=== PATIENT | female | born 1975 ===

== ENCOUNTER 2021-04-19 07:02 | Inpatient (IN) | payer OTHER ==
[2021-04-19] MEDS ORDERED: Water For Irrigation,Sterile 1,000 ML Container IRR PRN (07:22)
[2021-04-19] MEDS ORDERED: Misoprostol 200 MCG Tab PO PRN (07:22)
[2021-04-19] MEDS ORDERED: Carboprost Tromethamine 250 MCG/1 ML Amp IM PRN (07:22)
[2021-04-19] MEDS ORDERED: Nalbuphine 10 MG/1 ML Vial IVPUSH PRN (07:22)
[2021-04-19] MEDS ORDERED: Sodium Chloride 0.9% 10 ML SDV IV PRN (07:22)
[2021-04-19] MEDS ORDERED: Sodium Chloride 0.9% 2.5 ML Syringe FLUSH PRN (07:22)
[2021-04-19] MEDS ORDERED: Tranexamic Acid 1,000 MG in Sodium Chloride 0.9% 100 ML IV PRN (07:22)
[2021-04-19] MEDS ORDERED: Lidocaine 1% 50 ML MDV INJECT PRN (07:22)
[2021-04-19] MEDS ORDERED: Sodium Chloride 0.9% 10 ML Syringe FLUSH PRN (07:22)
[2021-04-19] MEDS ORDERED: Butorphanol 1 MG/ML SDV IVPUSH PRN (07:22)
[2021-04-19] MEDS ORDERED: Methylergonovine 0.2 MG/1 ML Amp IM PRN (07:22)
[2021-04-19] MEDS ORDERED: Oxytocin/0.9 % Sodium Chloride 30 UNIT/500 ML BAG IV SCH (07:30)
[2021-04-19] MEDS: Lactated Ringers 1,000 ML IV SCH ×3 (07:48→10:45)
[2021-04-19] MEDS ORDERED: NIFEdipine 10 MG Cap ONE (08:43)
[2021-04-19] MEDS ORDERED: NIFEdipine 10 MG Cap PO ONE (08:45)
--- NOTE | 2021-04-19 10:39 | PCM.LDHP ---
L&D History of Present Illness - General Date of Service: 04/19/21 Admit Problem/Dx: Patient Status Order with Admit Dx/Problem 04/19/21 06:45 Patient Status [ADT] Routine Admission Diagnosis/Problem Admission Diagnosis/Problem Source of Information: Patient History Limitations: Reports: No Limitations - History of Present Illness Improves with: Reports: None Worsens with: Reports: None Associated Symptoms: Reports: N - Related Data Allergies/Adverse Reactions: Allergies Allergy/AdvReac Type Severity Reaction Status Date / Time No Known Allergies Allergy Verified 04/19/21 07:22 Home Medications: Home Meds Cetirizine [ZyrTEC] 10 mg PO DAILY 03/13/18 [History] FLUoxetine HCl [Fluoxetine HCl] 10 mg PO DAILY 03/13/18 [History] NIFEdipine [Nifedipine ER] 60 mg PO DAILY 03/13/18 [History] Vit/Iron Fumarate/FA [ Tablet] 1 tab PO DAILY 03/13/18 [History] Past Medical History HEENT History: Reports: Impaired Vision, Other (See Below) Other HEENT History: 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 diff [employer] History: Reports: , Spontaneous Psychiatric History: Reports: Anxiety, Bipolar, Depression, Other (See Below) Other Psychiatric History: social anxiety Dermatologic History: Reports: Eczema - Infectious Disease History Infectious Disease History: Reports: C-Difficile, Chicken Pox - Past Surgical History HEENT Surgical History: Reports: None Cardiovascular Surgical History: Reports: None Respiratory Surgical History: Reports: None GI Surgical History: Reports: None Dermatological Surgical History: Reports: None Social & Family History - Family History Family Medical History: No Pertinent Family History - Tobacco Use Tobacco Use Status *Q: Current Every Day Tobacco User Years of Tobacco use: 25 Packs/Tins Daily: 0.5 Used Tobacco, but Quit: No Second Hand Smoke Exposure: No - Recreational Drug Use Recreational Drug Use: Yes Drug Use in Last 12 Months: No Recreational Drug Type: Reports: Methamphetamine Recreational Drug Use Frequency: Not Used In Over 6 Months Recreational Drug Last Use: 2007 H&P Review of Systems - Review of Systems: Review Of Systems: See Below General: Reports: No Symptoms HEENT: Reports: No Symptoms Pulmonary: Reports: No Symptoms Cardiovascular: Reports: No Symptoms Gastrointestinal: Reports: No Symptoms Genitourinary: Reports: No Symptoms Musculoskeletal: Reports: No Symptoms Skin: Reports: No Symptoms Psychiatric: Reports: No Symptoms Neurological: Reports: No Symptoms Hematologic/Lymphatic: Reports: No Symptoms Immunologic: Reports: No Symptoms L&D Exam - Exam Exam: See Below - Vital Signs Weight: 99.337 kg - OB Specific Contraction Intensity: Moderate Movement: Active Heart Tones: Present Presentation: Vertex - Barraza Score Barraza Score Cervix Position: Anterior Barraza Score Consistency: Soft Barraza Score Effacement: >80% Barraza Score Dilation: > 5 cm Barraza Score 's Station: -2 Barraza Score Total: 11 - Exam General: Alert, Oriented HEENT: PERRLA, Conjunctiva Clear, EACs Clear, EOMI, Hearing Intact, Mucosa Moist & Point, Nares Patent, Normal Nasal Septum, Posterior Pharynx Clear, TMs Clear Neck: Supple, Trachea Midline Lungs: Clear to Auscultation, Normal Respiratory Effort Cardiovascular: Regular Rate, Regular Rhythm GI/Abdominal Exam: Normal Bowel Sounds, Soft, Non-Tender, No Organomegaly, No Distention, No Abnormal Bruit, No Mass, Pelvis Stable Rectal Exam: Normal Exam, Normal Rectal Tone Genitourinary: Normal external exam, Normal bimanual exam, Normal speculum exam Back Exam: Normal Inspection, Full Range of Motion Extremities: Normal Inspection, Normal Range of Motion, Non-Tender, No Pedal Edema, Normal Capillary Refill Skin: Warm, Dry, Intact Neurological: Cranial Nerves Intact, Reflexes Equal Bilateral Psychiatric: Alert, Normal Affect, Normal Mood - Patient Data Lab Results Last 24 hrs: Laboratory Results - last 24 hr 04/19/21 04/19/21 04/19/21 Range/Units 07:27 07:27 08:15 WBC 9.74 (4.0-11.0) K/uL RBC 4.46 (4.30-5.90) M/uL Hgb 12.9 (12.0-16.0) g/dL Hct 38.3 (36.0-46.0) % MCV 85.9 (80.0-98.0) fL MCH 28.9 (27.0-32.0) pg MCHC 33.7 (31.0-37.0) g/dL RDW Std Deviation 44.5 (28.0-62.0) fl RDW Coeff of Manuel 14 (11.0-15.0) % Plt Count 421 H (150-400) K/uL MPV 10.20 (7.40-12.00) fL Nucleated RBC % 0.0 /100WBC Nucleated RBCs # 0 K/uL SARS-CoV-2 RNA (MARIA) NEGATIVE (NEGATIVE) Blood Type AB POSITIVE Antibody Screen NEGATIVE Result Diagrams: 04/19/21 07:27 Problem List Initiated/Reviewed/Updated: Yes Orders Last 24hrs: Active Orders 24 hr Category Date Time Status Patient Status [ADT] Routine ADT 04/19/21 06:45 Active Heart Tones [RC] CONTINUOUS Care 04/19/21 07:22 Active Non Stress Test [RC] PER UNIT ROUTINE Care 04/19/21 07:22 Active May Shower [RC] ASDIRECTED Care 04/19/21 07:22 Active Notify Provider [RC] PRN Care 04/19/21 07:22 Active Up ad Shaila [RC] ASDIRECTED Care 04/19/21 07:22 Active Vaccine to be Administered/Admin Charge [RC] ASDIRECTED Care 04/19/21 09:27 Active Vaginal Exam [RC] PRN Care 04/19/21 07:22 Active Vital Signs [RC] PER UNIT ROUTINE Care 04/19/21 07:22 Active OB 2 Or 3 Tri Sgl 1st Gest [US] Stat Exams 04/19/21 10:21 Ordered RPR (SYPHILIS SERO) W/ RFLX [REF] Routine Lab 04/19/21 07:27 Received Butorphanol [Stadol] Med 04/19/21 07:22 Active 1 mg IVPUSH Q1H PRN Carboprost Tromethamine [Hemabate DS] Med 04/19/21 07:22 Active 250 mcg IM ASDIRECTED PRN FLU Vacc [id number](6MOS UP)/PF [Fluzone Quad [id number] Med 04/24/21 09:30 Once Syringe] 60 mcg IM .ONCE ONE Lactated Ringers [Ringers, Lactated] 1,000 ml Med 04/19/21 07:30 Active IV ASDIRECTED Lidocaine 1% [Xylocaine 1%] Med 04/19/21 07:22 Active 50 ml INJECT ONETIME PRN Methylergonovine [Methergine] Med 04/19/21 07:22 Active 0.2 mg IM ASDIRECTED PRN Nalbuphine [Nubain] Med 04/19/21 07:22 Active 10 mg IVPUSH Q1H PRN Oxytocin/0.9 % Sodium Chloride [Oxytocin 30 Unit in NS Med 04/19/21 07:30 Active 0.9% 500 ML Premix] 30 unit in 500 ml IV TITRATE Pharmacy to Dose - InFluenza V [Pharmacy to Dose - Med 04/20/21 09:27 Once InFluenza Vaccine] 1 each IM ONETIME ONE Sodium Chloride 0.9% [Normal Saline] Med 04/19/21 07:22 Active 10 ml IV ASDIRECTED PRN Sodium Chloride 0.9% [Saline Flush] Med 04/19/21 07:22 Active 10 ml FLUSH ASDIRECTED PRN Sodium Chloride 0.9% [Saline Flush] Med 04/19/21 07:22 Active 2.5 ml FLUSH ASDIRECTED PRN Tranexamic Acid [Cyklokapron] 1,000 mg Med 04/19/21 07:22 Active Sodium Chloride 0.9% [Normal Saline] 100 ml IV ONETIME Water For Irrigation,Sterile [Sterile Water for Med 04/19/21 07:22 Active Irrigation] 1,000 ml IRR ASDIRECTED PRN miSOPROStoL [Cytotec] Med 04/19/21 07:22 Active 200 mcg PO ONETIME PRN Scalp Electrode [WOMSER] Per Unit Routine Oth 04/19/21 07:22 Ordered Peripheral IV Insertion Adult [OM.PC] Routine Oth 04/19/21 07:22 Ordered Resuscitation Status Routine Resus Stat 04/19/21 07:22 Ordered Medication Orders Butorphanol Tartrate (Butorphanol 1 Mg/Ml Sdv) 1 mg IVPUSH Q1H PRN PRN Reason: Pain (severe 7-10) Carboprost Tromethamine (Carboprost Tromethamine 250 Mcg/1 Ml Amp) 250 mcg IM ASDIRECTED PRN PRN Reason: Post Hemorrhage Oxytocin/Sodium Chloride (Oxytocin 30 Unit In Ns 0.9% 500 Ml Premix) 30 unit in 500 mls @ 500 mls/hr IV TITRATE [facility] Tranexamic Acid 1,000 mg/ (Sodium Chloride) 110 mls @ 660 mls/hr IV ONETIME PRN PRN Reason: Bleeding Lactated Ringer's (Ringers, Lactated) 1,000 mls @ 150 mls/hr IV ASDIRECTED IRENA Last Admin: 04/19/21 08:37 Dose: 150 mls/hr Documented by: Infusion: 04/19/21 08:37 Dose: 999 mls/hr Documented by: Admin: 04/19/21 07:48 Dose: 999 mls/hr Documented by: MACY Influenza Virus Vaccine (Pharmacy To Dose - Influenza Vaccine) 1 each IM ONETIME ONE Stop: 04/20/21 09:28 Influenza Virus Vaccine (Flu Vacc [id number](6mos Up)/Pf 60 Mcg/0.5 Ml Syringe) 60 mcg IM .ONCE ONE Stop: 04/24/21 09:31 Lidocaine HCl (Lidocaine 1% 50 Ml Mdv) 50 ml INJECT ONETIME PRN PRN Reason: Laceration repair Methylergonovine Maleate (Methylergonovine 0.2 Mg/1 Ml Amp) 0.2 mg IM ASDIRECTED PRN PRN Reason: Post Hemorrhage Misoprostol (Misoprostol 200 Mcg Tab) 200 mcg PO ONETIME PRN PRN Reason: Post Hemorrhage Nalbuphine HCl (Nalbuphine 10 Mg/1 Ml Vial) 10 mg IVPUSH Q1H PRN PRN Reason: Pain (severe 7-10) Sodium Chloride (Sodium Chloride 0.9% 10 Ml Syringe) 10 ml FLUSH ASDIRECTED PRN PRN Reason: Keep Vein Open Sodium Chloride (Sodium Chloride 0.9% 2.5 Ml Syringe) 2.5 ml FLUSH ASDIRECTED PRN PRN Reason: Keep Vein Open Sodium Chloride (Sodium Chloride 0.9% 10 Ml Sdv) 10 ml IV ASDIRECTED PRN PRN Reason: IV Use Sterile Water (Water For Irrigation,Sterile 1,000 Ml Container) 1,000 ml IRR ASDIRECTED PRN PRN Reason: delivery
--- NOTE | 2021-04-19 11:12 | US ---
INDICATION: Patient in labor. Question position. TECHNIQUE: Limited transabdominal two-dimensional grayscale ultrasound examination. COMPARISON: 12/29/2020. FINDINGS: There is a living fetus in vertex lie with gestational age of 37 weeks 3 days by LMP and EDC of 05/07/2021. The heart rate is measured at 145 beats per minute and the rhythm appears regular. IMPRESSION: Living fetus in vertex lie with gestational age of 37 weeks 3 days by LMP and EDC of 05/07/2021. Dictated by Ambrosio Cornelius MD @ 04/19/2021 11:10:42 AM (Electronically Signed)
[2021-04-19] MEDS ORDERED: Bisacodyl 10 MG Supp RECTAL PRN (13:34)
[2021-04-19] MEDS ORDERED: Ibuprofen 400 MG Tab PO PRN (13:34)
[2021-04-19] MEDS ORDERED: Docusate Sodium 100 MG Cap PO PRN (13:34)
[2021-04-19] MEDS ORDERED: Witch Hazel Medicated Pads 40/Jar TOP PRN (13:34)
[2021-04-19] MEDS ORDERED: Lanolin 100% Cream 7 GM Tube TOP PRN (13:34)
[2021-04-19] MEDS ORDERED: Acetaminophen 500 MG Tab PO PRN (13:34)
[2021-04-19] MEDS ORDERED: Benzocaine/Menthol 20%-0.5% Spray 78 GM Cannister TOP PRN (13:34)
[2021-04-19] MEDS: Ibuprofen 800 MG Tab PO PRN ×2 (14:16→19:47)
[2021-04-19] MEDS: oxyCODONE 5 MG Tab PO PRN ×2 (14:17→21:38)
--- NOTE | 2021-04-19 15:59 | OR ---
SURGEON: Murali Zavala MD DATE OF PROCEDURE: 04/19/2021 Ms. Lofton is a 45-year-old patient. She is para 5-0-0-5. She is followed in our clinic jointly by myself and nurse bell valet. Her GBS status is negative. She is 38 weeks. She is admitted in active labor. At the time of admission, she was 4 to 5 cm with bulging bag of water. There was questionable about the presentation, but her presentation was confirmed by ultrasound to be vertex. She was leaking amniotic fluid and then we proceeded to have spontaneous rupture of the membranes. The patient progressed to complete, complete, and she was able to push the fetus to have a normal spontaneous vaginal delivery of a female fetus. The scores and weight are not available at the time of the delivery. There was no need for episiotomy. There was no perineal, labial, or vaginal laceration. The placenta delivered spontaneous, complete, and intact. heart rate was category 1 through the entire process of labor. There was no complication in the labor and delivery of this patient. DEEP / SARAY /[id number]
[2021-04-20] MEDS: Acetaminophen 500 MG Tab PO PRN ×3 (04:38→13:55)
[2021-04-20] MEDS: oxyCODONE 5 MG Tab PO PRN (06:50)
[2021-04-20] MEDS ORDERED: NIFEdipine 30 MG Tab.ER PO SCH (09:00)
[2021-04-20] MEDS: Ibuprofen 800 MG Tab PO PRN (13:55)
--- NOTE | 2021-04-20 16:38 | PCM.PNPP ---
- General Info Date of Service: 04/20/21 Admission Dx/Problem (Free Text): Patient Status Order with Admit Dx/Problem 04/19/21 06:45 Patient Status [ADT] Routine Admission Diagnosis/Problem Admission Diagnosis/Problem Subjective Update: 45yo G10 now P3365 s/p uncomplicated @ 37w3d GA. Doing well. No c/o Functional Status: Reports: Pain Controlled - Review of Systems General: Reports: No Symptoms HEENT: Reports: No Symptoms Pulmonary: Reports: No Symptoms Gastrointestinal: Reports: No Symptoms Genitourinary: Reports: No Symptoms Musculoskeletal: Reports: No Symptoms Skin: Reports: No Symptoms Neurological: Reports: No Symptoms Psychiatric: Reports: No Symptoms - General Info Date of Service: 04/20/21 - Patient Data Vital Signs - Most Recent: Last Vital Signs Temp 97.8 F 04/20/21 08:00 Pulse 77 04/20/21 08:00 Resp 18 04/20/21 08:00 BP 152/97 H 04/20/21 08:31 Pulse Ox 96 04/20/21 08:00 Weight - Most Recent: 99.337 kg Lab Results - Last 24 Hours: Laboratory Results - last 24 hr 04/19/21 04/20/21 Range/Units 07:27 05:08 Hgb 12.0 (12.0-16.0) g/dL Hct 35.9 L (36.0-46.0) % RPR Non-Reac (Non-Reac) Med Orders - Current: Current Medications Discontinued Medications Acetaminophen (Acetaminophen 500 Mg Tab) 500 mg PO Q4H PRN PRN Reason: Pain (mild 1-3) Acetaminophen (Acetaminophen 500 Mg Tab) 1,000 mg PO Q4H PRN PRN Reason: Pain (mild 1-3) Last Admin: 04/20/21 13:55 Dose: 1,000 mg Documented by: Benzocaine/Menthol (Benzocaine/Menthol 20%-0.5% [place] 78 Gm Cannister) 78 gm TOP ASDIRECTED PRN PRN Reason: Perineal Comfort Measure Last Admin: 04/19/21 14:44 Dose: 1 canister Documented by: Bisacodyl (Bisacodyl 10 Mg Supp) 10 mg RECTAL ONETIME PRN PRN Reason: Constipation Butorphanol Tartrate (Butorphanol 1 Mg/Ml Sdv) 1 mg IVPUSH Q1H PRN PRN Reason: Pain (severe 7-10) Carboprost Tromethamine (Carboprost Tromethamine 250 Mcg/1 Ml Amp) 250 mcg IM ASDIRECTED PRN PRN Reason: Post Hemorrhage Docusate Sodium (Docusate Sodium 100 Mg Cap) 100 mg PO Q12H PRN PRN Reason: Constipation Last Admin: 04/19/21 19:46 Dose: 100 mg Documented by: Emollient Ointment (Lanolin 100% Cream 7 Gm Tube) 0 gm TOP ASDIRECTED PRN PRN Reason: Sore Nipples Fluoxetine HCl (Fluoxetine 10 Mg Tab) 50 mg PO DAILY [facility] Last Admin: 04/20/21 08:30 Dose: 50 mg Documented by: Oxytocin/Sodium Chloride (Oxytocin 30 Unit In Ns 0.9% 500 Ml Premix) 30 unit in 500 mls @ 500 mls/hr IV TITRATE [facility] Last Infusion: 04/19/21 13:48 Dose: 250 mls/hr Documented by: Tranexamic Acid 1,000 mg/ (Sodium Chloride) 110 mls @ 660 mls/hr IV ONETIME PRN PRN Reason: Bleeding Lactated Ringer's (Ringers, Lactated) 1,000 mls @ 150 mls/hr IV ASDIRECTED IRENA Last Admin: 04/19/21 10:45 Dose: 150 mls/hr Documented by: Ibuprofen (Ibuprofen 400 Mg Tab) 400 mg PO Q4H PRN PRN Reason: Pain (mild 1-3) Ibuprofen (Ibuprofen 800 Mg Tab) 800 mg PO Q6H PRN PRN Reason: Cramping Last Admin: 04/20/21 13:55 Dose: 800 mg Documented by: Influenza Virus Vaccine (Pharmacy To Dose - Influenza Vaccine) 1 each IM ONETIME ONE Stop: 04/20/21 09:28 Last Admin: 04/20/21 15:36 Dose: Not Given Documented by: Influenza Virus Vaccine (Flu Vacc [id number](6mos Up)/Pf 60 Mcg/0.5 Ml Syringe) 60 mcg IM .ONCE ONE Stop: 04/24/21 09:31 Lidocaine HCl (Lidocaine 1% 50 Ml Mdv) 50 ml INJECT ONETIME PRN PRN Reason: Laceration repair Methylergonovine Maleate (Methylergonovine 0.2 Mg/1 Ml Amp) 0.2 mg IM ASDIRECTED PRN PRN Reason: Post Hemorrhage Misoprostol (Misoprostol 200 Mcg Tab) 200 mcg PO ONETIME PRN PRN Reason: Post Hemorrhage Nalbuphine HCl (Nalbuphine 10 Mg/1 Ml Vial) 10 mg IVPUSH Q1H PRN PRN Reason: Pain (severe 7-10) Nifedipine (Nifedipine 10 Mg Cap) 20 mg PO ONETIME ONE Stop: 04/19/21 08:46 Last Admin: 04/19/21 13:11 Dose: 10 mg Documented by: Nifedipine (Nifedipine 10 Mg Cap) Confirm Administered Dose 20 mg .ROUTE .STK- MED ONE Stop: 04/19/21 08:44 Last Admin: 04/19/21 12:57 Dose: 10 mg Documented by: Nifedipine (Nifedipine 30 Mg Tab.Er) 90 mg PO DAILY [facility] Last Admin: 04/20/21 08:31 Dose: 90 mg Documented by: Oxycodone HCl (Oxycodone 5 Mg Tab) 5 mg PO Q2H PRN PRN Reason: Pain (severe 7-10) Last Admin: 04/20/21 06:50 Dose: 5 mg Documented by: Sodium Chloride (Sodium Chloride 0.9% 10 Ml Syringe) 10 ml FLUSH ASDIRECTED PRN PRN Reason: Keep Vein Open Sodium Chloride (Sodium Chloride 0.9% 2.5 Ml Syringe) 2.5 ml FLUSH ASDIRECTED PRN PRN Reason: Keep Vein Open Sodium Chloride (Sodium Chloride 0.9% 10 Ml Sdv) 10 ml IV ASDIRECTED PRN PRN Reason: IV Use Sterile Water (Water For Irrigation,Sterile 1,000 Ml Container) 1,000 ml IRR ASDIRECTED PRN PRN Reason: delivery Witch Candice (Witch Candice Medicated Pads 40/Jar) 1 pad TOP ASDIRECTED PRN PRN Reason: comfort care Last Admin: 04/19/21 14:44 Dose: 1 pad Documented by: - Interaction Support Person: - Recovery Exam Fundal Tone: Firm Fundal Level: 1 Fingerbreadths Below Umbilicus Fundal Placement: Midline Lochia Amount: Scant Lochia Color: Rubra/Red Perineum Description: Intact, Minimal Bruising/Swelling Episiotomy/Laceration: None Bladder Status: Voiding Urinary Elimination: Voided - Exam General: Alert, Oriented Lungs: Normal Respiratory Effort GI/Abdominal Exam: Soft, Non-Tender Extremities: Normal Inspection Psy/Mental Status: Alert, Normal Affect, Normal Mood - Problem List & Annotations (1) Term delivered SNOMED Code(s): 77967380, [id number] Code(s): O80 - ENCOUNTER FOR FULL-TERM UNCOMPLICATED DELIVERY Status: Acute - Problem List Review Problem List Initiated/Reviewed/Updated: Yes - Plan Plan:: 45yo G10 now P3365 s/p uncomplicated @ 37w3d GA. P: Continue routine care
--- NOTE | 2021-04-20 16:44 | PCM.DCSUM1 ---
Discharge Summary - Hospital Course Free Text/Narrative:: 45yo G10 now P3365 s/p uncomplicated @ 37w3d GA. course unremarkable Diagnosis: Stroke: No - Discharge Data Discharge Date: 04/20/21 Discharge Disposition: Home, Self-Care 01 Condition: Good - Referral to Home Health Primary Care Physician: PCP None - Discharge Diagnosis/Problem(s) (1) Term delivered SNOMED Code(s): 52723420, [id number] ICD Code: O80 - ENCOUNTER FOR FULL-TERM UNCOMPLICATED DELIVERY Status: Acute Priority: High - Patient Instructions Diet: Usual Diet as Tolerated - Discharge Plan *PRESCRIPTION DRUG MONITORING PROGRAM REVIEWED*: Not Applicable *COPY OF PRESCRIPTION DRUG MONITORING REPORT IN PATIENT MIKE: Not Applicable Home Medications: Home Meds Cetirizine [ZyrTEC] 10 mg PO DAILY 03/13/18 [History] FLUoxetine HCl [Fluoxetine HCl] 10 mg PO DAILY 03/13/18 [History] NIFEdipine [Nifedipine ER] 60 mg PO DAILY 03/13/18 [History] Vit/Iron Fumarate/FA [ Tablet] 1 tab PO DAILY 03/13/18 [History] Loratadine/Pseudoephedrine [Claritin-D 24 Hour Tablet] 1 each PO DAILY 04/19/21 [History] Montelukast Sodium [Singulair] 10 mg PO BEDTIME 04/19/21 [History] Patient Handouts: Steps to Quit Smoking, Liel-wo-Ebsn, Managing the Challenge of Quitting Smoking, Baby Blues, Preventing Smoking Relapse After , Care After Vaginal Delivery Referrals: Murali Zavala MD [Physician] - 05/30/21 1:30 pm (6-week check.) - Discharge Summary/Plan Comment DC Time >30 min.: Yes Total # of Minutes for Discharge Time: >30mns - General Info Date of Service: 04/20/21 Subjective Update: 45yo G10 now P3365 s/p uncomplicated @ 37w3d GA. care unremarkable Functional Status: Reports: Pain Controlled - Review of Systems General: Reports: No Symptoms HEENT: Reports: No Symptoms Pulmonary: Reports: No Symptoms Cardiovascular: Reports: No Symptoms Gastrointestinal: Reports: No Symptoms Genitourinary: Reports: No Symptoms Musculoskeletal: Reports: No Symptoms Skin: Reports: No Symptoms Neurological: Reports: No Symptoms Psychiatric: Reports: No Symptoms - Patient Data Vitals - Most Recent: Last Vital Signs Temp 97.8 F 04/20/21 08:00 Pulse 77 04/20/21 08:00 Resp 18 04/20/21 08:00 BP 152/97 H 04/20/21 08:31 Pulse Ox 96 04/20/21 08:00 Weight - Most Recent: 99.337 kg Lab Results - Last 24 hrs: Laboratory Results - last 24 hr 04/19/21 04/20/21 Range/Units 07:27 05:08 Hgb 12.0 (12.0-16.0) g/dL Hct 35.9 L (36.0-46.0) % RPR Non-Reac (Non-Reac) Med Orders - Current: Current Medications Discontinued Medications Acetaminophen (Acetaminophen 500 Mg Tab) 500 mg PO Q4H PRN PRN Reason: Pain (mild 1-3) Acetaminophen (Acetaminophen 500 Mg Tab) 1,000 mg PO Q4H PRN PRN Reason: Pain (mild 1-3) Last Admin: 04/20/21 13:55 Dose: 1,000 mg Documented by: Benzocaine/Menthol (Benzocaine/Menthol 20%-0.5% [place] 78 Gm Cannister) 78 gm TOP ASDIRECTED PRN PRN Reason: Perineal Comfort Measure Last Admin: 04/19/21 14:44 Dose: 1 canister Documented by: Bisacodyl (Bisacodyl 10 Mg Supp) 10 mg RECTAL ONETIME PRN PRN Reason: Constipation Butorphanol Tartrate (Butorphanol 1 Mg/Ml Sdv) 1 mg IVPUSH Q1H PRN PRN Reason: Pain (severe 7-10) Carboprost Tromethamine (Carboprost Tromethamine 250 Mcg/1 Ml Amp) 250 mcg IM ASDIRECTED PRN PRN Reason: Post Hemorrhage Docusate Sodium (Docusate Sodium 100 Mg Cap) 100 mg PO Q12H PRN PRN Reason: Constipation Last Admin: 04/19/21 19:46 Dose: 100 mg Documented by: Emollient Ointment (Lanolin 100% Cream 7 Gm Tube) 0 gm TOP ASDIRECTED PRN PRN Reason: Sore Nipples Fluoxetine HCl (Fluoxetine 10 Mg Tab) 50 mg PO DAILY [facility] Last Admin: 04/20/21 08:30 Dose: 50 mg Documented by: Oxytocin/Sodium Chloride (Oxytocin 30 Unit In Ns 0.9% 500 Ml Premix) 30 unit in 500 mls @ 500 mls/hr IV TITRATE [facility] Last Infusion: 04/19/21 13:48 Dose: 250 mls/hr Documented by: Tranexamic Acid 1,000 mg/ (Sodium Chloride) 110 mls @ 660 mls/hr IV ONETIME PRN PRN Reason: Bleeding Lactated Ringer's (Ringers, Lactated) 1,000 mls @ 150 mls/hr IV ASDIRECTED [facility] Last Admin: 04/19/21 10:45 Dose: 150 mls/hr Documented by: Ibuprofen (Ibuprofen 400 Mg Tab) 400 mg PO Q4H PRN PRN Reason: Pain (mild 1-3) Ibuprofen (Ibuprofen 800 Mg Tab) 800 mg PO Q6H PRN PRN Reason: Cramping Last Admin: 04/20/21 13:55 Dose: 800 mg Documented by: Influenza Virus Vaccine (Pharmacy To Dose - Influenza Vaccine) 1 each IM ONETIME ONE Stop: 04/20/21 09:28 Last Admin: 04/20/21 15:36 Dose: Not Given Documented by: Influenza Virus Vaccine (Flu Vacc [id number](6mos Up)/Pf 60 Mcg/0.5 Ml Syringe) 60 mcg IM .ONCE ONE Stop: 04/24/21 09:31 Lidocaine HCl (Lidocaine 1% 50 Ml Mdv) 50 ml INJECT ONETIME PRN PRN Reason: Laceration repair Methylergonovine Maleate (Methylergonovine 0.2 Mg/1 Ml Amp) 0.2 mg IM ASDIRECTED PRN PRN Reason: Post Hemorrhage Misoprostol (Misoprostol 200 Mcg Tab) 200 mcg PO ONETIME PRN PRN Reason: Post Hemorrhage Nalbuphine HCl (Nalbuphine 10 Mg/1 Ml Vial) 10 mg IVPUSH Q1H PRN PRN Reason: Pain (severe 7-10) Nifedipine (Nifedipine 10 Mg Cap) 20 mg PO ONETIME ONE Stop: 04/19/21 08:46 Last Admin: 04/19/21 13:11 Dose: 10 mg Documented by: Nifedipine (Nifedipine 10 Mg Cap) Confirm Administered Dose 20 mg .ROUTE .STK- MED ONE Stop: 04/19/21 08:44 Last Admin: 04/19/21 12:57 Dose: 10 mg Documented by: Nifedipine (Nifedipine 30 Mg Tab.Er) 90 mg PO DAILY [facility] Last Admin: 04/20/21 08:31 Dose: 90 mg Documented by: Oxycodone HCl (Oxycodone 5 Mg Tab) 5 mg PO Q2H PRN PRN Reason: Pain (severe 7-10) Last Admin: 04/20/21 06:50 Dose: 5 mg Documented by: Sodium Chloride (Sodium Chloride 0.9% 10 Ml Syringe) 10 ml FLUSH ASDIRECTED PRN PRN Reason: Keep Vein Open Sodium Chloride (Sodium Chloride 0.9% 2.5 Ml Syringe) 2.5 ml FLUSH ASDIRECTED PRN PRN Reason: Keep Vein Open Sodium Chloride (Sodium Chloride 0.9% 10 Ml Sdv) 10 ml IV ASDIRECTED PRN PRN Reason: IV Use Sterile Water (Water For Irrigation,Sterile 1,000 Ml Container) 1,000 ml IRR ASDIRECTED PRN PRN Reason: delivery Witch Candice (Witch Candice Medicated Pads 40/Jar) 1 pad TOP ASDIRECTED PRN PRN Reason: comfort care Last Admin: 04/19/21 14:44 Dose: 1 pad Documented by: - Exam General: Reports: Alert, Oriented Lungs: Reports: Normal Respiratory Effort Cardiovascular: Reports: Regular Rhythm Extremities: Normal Inspection Psy/Mental Status: Reports: Alert, Normal Affect, Normal Mood
== END 2021-04-20 16:04 | disposition home or self-care (01) | DRG 807 ==
LOC: MW.OB 07:02 → MW.OBCHECK 07:02 → MW.OB 07:12 → MW.OBCHECK 07:53 → OBSVTOIN 13:26 → MW.OB 15:49
PROVIDERS: ADMIT Obstetrics & Gynecology Obstetrics; ATTEND Obstetrics & Gynecology
PROC: 10E0XZZ Delivery of Products of Conception, External Approach (ICD-10-PCS; principal; 2021-04-19)
DX: O99.334 Smoking (tobacco) complicating childbirth (principal); Z37.0 Single live birth; O10.92 Unspecified pre-existing hypertension complicating childbirth; Z3A.38 38 weeks gestation of pregnancy; Z20.822 Contact with and (suspected) exposure to COVID-19; F17.210 Nicotine dependence, cigarettes, uncomplicated
CPT/HCPCS: 36415; 59025; 59409; 76815; 76815-26; 85014; 85018; 85027; 86592; 86850; 86900; 86901; A9270-GY; J2590; J7120; U0002